=== PATIENT | male | born 1970 | race Caucasian/White ===

== ENCOUNTER 2025-09-13 17:43 | Emergency (ER) | payer OTHER, SELFPAY ==
[2025-09-13 17:49] VITALS: BP 150/91
[2025-09-13 17:58] VITALS: BMI 29.3
[2025-09-13 18:00] VITALS: BP 142/94
[2025-09-13 18:08] LABS: Hematocrit 53.8 % (39.0-52.0); Hemoglobin 17.4 g/dL (13.0-18.0); Mean Corp Hgb Conc. 32.3 g/dL (33.0-37.0); Mean Corpuscular Volume 93.1 fL (80.0-94.0); Nucleated Red Blood Cells % 0 % (-); Platelet Count 268 10^3/uL (130-400); Red Cell Dist. Width 13.6 % (11.5-14.5)
[2025-09-13 18:24] LABS: ALT (SGPT) 30 U/L (0-50); AST (SGOT) 36 U/L (17-59); Albumin 4.7 g/dl (3.5-5.0); Alkaline Phosphatase 64 U/L (38-126); Blood Urea Nitrogen 20 mg/dl (9-20); Calcium 9.5 mg/dl (8.4-10.2); Carbon Dioxide 23 mmol/L (22-30); Chloride 103 mmol/L (98-107); Estimated Creatinine Clearance 70 ml/min; Glucose 128 mg/dl (70-99); Potassium 4.2 mmol/L (3.5-5.1); Sodium 137 mmol/L (135-145); Total Protein 7.7 g/dl (6.3-8.2); eGFR > 60.00
[2025-09-13 19:00] VITALS: BP 186/97
[2025-09-13] MEDS: ATIVAN 1 MG IV ×2 (19:05→20:10)
[2025-09-13] MEDS: NSS 1000 IV (19:06)
--- NOTE | 2025-09-13 19:06 | ED.GENMED ---
History of Present Illness
General
Chief Complaint: Heart Rate Problem
Source: patient
Exam Limitations: none
Time Seen by Provider: 09/13/25 18:28
Nursing documentation reviewed up to this point in time: agreed with
History of Present Illness
History of Present Illness:
see MDM
Past History
Past History
ED Past Medical History: None
ED Past Surgical History: None
Social History
Tobacco: Smoker
Alcohol: Daily
Drug: Cocaine
Personal:
Living: with roommate
Employment: Employed
Review of Systems
Review of Systems
Allergies reviewed?: Yes
All Other Systems: Not applicable
Phy Exam
Physical Exam
Physical Exam:
see MDM
Course
Orders/Labs/Results
Orders:
Orders
09/13/25 17:46
EKG [Electrocardiogram (*1)] Urgent
Reason for Study: Tachycardia
EKG- Treatment ONCE
09/13/25 17:57
Complete Blood Count/With Diff Urgent
Comprehensive Metabolic Panel Urgent
09/13/25 18:53
0.9% Sodium Chloride 1000 ml [Nss] 1,000 ml IV BOLUS
Lorazepam [Ativan] 1 mg IV NOW STA
09/13/25 20:02
Lorazepam [Ativan] 1 mg IV NOW STA
09/13/25 20:04
Lorazepam [Ativan] 2 mg .ROUTE .STK-MED ONE
Abnormal Lab Results
09/13/25
17:57
WBC 13.2 H 10^3/uL
(4.8-10.8)
Hct 53.8 H %
(39.0-52.0)
MCHC 32.3 L g/dL
(33.0-37.0)
Abs Immat Gran (auto) 0.1 H 10^3/uL
(0-0.05)
Absolute Neuts (auto) 9.4 H 10^3/uL
(1.4-6.5)
Absolute Monos (auto) 1.0 H 10^3/uL
(0.1-0.6)
Immature Gran % 0.9 H %
(0-0.5)
Lymphocytes % 18.0 L %
(20.5-51.1)
Glucose 128 H mg/dl
(70-99)
09/13/25 17:57
09/13/25 17:57
Vital Signs
Initial and Last Documented VS:
Initial Vital Signs
BP
150/91
09/13/25 17:49
Last Documented Vital Signs
Temp Pulse Resp BP Pulse Ox
36.9 C 92 25 148/99 95
09/13/25 19:57 09/13/25 20:30 09/13/25 20:30 09/13/25 20:11 09/13/25 20:15
MDM/Problems Addressed
Differential Diagnosis Includes:
see MDM
MDM/Problems Addressed:
Note:
CHIEF COMPLAINT(S)
Suspected drug overdose.
HISTORY OF PRESENT ILLNESS
The patient is a 55 y/o male with a history of alcohol and substance use who presented to the emergency department after a binge. the patient has drank 3 pints of randi and did 8 balls of cocaine (snorted) in the past 2-3 days, and hasn't slept.
. He denied any suicidal intentions and mentioned no recent heart attack history. The patient does not experience withdrawal symptoms such as shakiness if he abstains from alcohol. There were no reports of chest pain, breathing difficulties, or
talking difficulties. The patients girlfriend called 911 because she observed concerning behavior, that he was paranoid. he says he doesn't feel paranoia here. He denied recent falls, head injuries, or nosebleeds.
SOCIAL DETERMINANTS AFFECTING HEALTH
The patient reported daily alcohol use but does not experience withdrawal symptoms. He denied having a substance abuse problem that necessitates rehab. The patient expressed anger toward his girlfriend for calling 911.
MEDICATIONS
The patient took one Xanax (alprazolam) tablet, unsure of its exact dosage.
REVIEW OF SYSTEMS
- Head: No reports of head injury or trauma.
- Cardiovascular: No recent heart attacks stated.
- Respiratory: No breathing difficulties reported.
- Neurological: No episodes of passing out or falls mentioned.
- Psychiatric: Denied suicidal ideation. Expressed being upset with the girlfriend for calling 911.
PHYSICAL EXAM
GENERAL: Alert , in no apparent distress
EYE: pupils equal and reactive
NECK: Supple
ENT: o/p clr, mildly hoarse voice, dry mouth, no nasal perforation or bleeding
CARDIAC: Regular rate and rhythm .
LUNGS: Clear breath sounds bilaterally, no acute respiratory distress, no wheezes/rales/rhonchi
ABDOMEN: Soft, without focal tenderness, no r/g, no cvat, normal bowel sounds
NEUROLOGICAL: Alert and oriented, no focal neuro deficits, does not seem paranoid
SKIN: Warm and dry, skin intact.
MUSCULOSKELETAL: No edema, well perfused. neg quique's sign
PSYCH: Normal and appropriate interaction.
Nursing notes and vital signs reviewed.
PLAN
The patient expressed no desire for rehab or detox assistance. Further evaluation and specific care plans were not explicitly discussed, indicating possible observation and supportive care as needed.
DIFFERENTIAL DIAGNOSIS
The Differential Diagnosis includes, in no particular order and is not limited to:
1. Cocaine intoxication
2. Alcohol intoxication
3. Xanax (alprazolam) overdose
4. Substance-induced mood disorder
5. Anxiety disorder
6. Acute stress reaction
7. Polysubstance abuse
8. Metabolic imbalance secondary to substance use
9. Respiratory depression from substance use
10. Cardiovascular complications from drug use
55-year-old male with a history of daily alcohol use and more recently binge use of cocaine, history of remote cocaine addiction presents for hallucinations and some paranoia witnessed by his girlfriend this evening. Patient says he in the last 2
days he really has not slept much, he used an 8 ball of cocaine and drank several pints of Randi and used 2 xanax 0.5 mg tabs to try to curb the anxiety but he was apparently screaming and now has hoarse voice
he has no cp, never had any
says his BP at home was normal despite that he was sweating the past 2 dyas
he feels now the best he has felt
no palpitaitons or syncope, no vomiting, no confusion here
neuro intact
no signs of stroke
ekg nonspecific t wave but no ischemia
mild leukocytosis related to drug use likely
pt was given some ativan beucase he seemed anxious and maybe coming down off the cocaine and alcohol
still hyperrtensive and mild tachy but oriented
says he is under tremendous stress due to a bad divorce
girlfeidn told me what happened
pt feels comfortable going home
he doesn't want B cares or help with detox
he has some xanax at home to take as needed for sleep
given 1 more dose of ativan here
d/w ed attending
*Pulse Oximetry
SaO2: 92
Patient hypoxic: no (95)
*Critical Care Note
Total Time (30-74mins, 75-104mins- exclusive of procedures): Not Applicable
ED Attending Note
-
Portions of this chart may have been created with voice recognition software.� Occasional wrong word or��sound alike� substitutions may have occurred due to the inherent limitations of voice recognition software.
Discharge Plan
Departure
Patient Disposition: Home (Routine Discharge)
Date of Disposition: 09/13/25
Time of Disposition: 20:47
Patient with high blood pressure during this ER visit?: Yes
Condition: Fair
Covid-19: Not Applicable
Discharge Problem:
Polysubstance abuse
Instructions: Alcohol intoxication - ED (DC), Substance use disorder - ED (DC), BLOOD PRESSURE
Referrals:
Suleman Srinivasan MD [Family Provider, Internal Medicine] - Follow up in 2-3 days
Activity Restrictions/Additional Instructions:
Your symptoms seem to be related to polysubstance abuse. You should seek help with your addiction as an outpatient, you can always return as needed. We gave you Ativan to help with the anxiety. He had no signs of a heart attack on your EKG. You
should return to the ER immediately for severe chest pain, change in mental status, fever or chills, alcohol withdrawal symptoms etc.
Have your blood pressure checked next week
Interventions
Interventions:
*Risk Screen - Suicide Last Done: 09/13/25 17:59
*General Assessment Last Done: 09/13/25 17:59
*Neglect/Abuse Screening Last Done: 09/13/25 17:59
*ED- Fall Risk Assessment Last Done: 09/13/25 17:59
*ED COVID-19 Vaccine History Last Done: 09/13/25 17:59
*ED Influenza Vaccine History Last Done: 09/13/25 17:59
*Nursing Disposition Last Done: 09/13/25 21:12
ED- Cardiac Assessment Last Done: 09/13/25 19:20
ED- Pulmonary Assessment Last Done: 09/13/25 19:20
Discharge Date and Time
Discharge Date/Time: 09/13/25 21:13
Print Language: [id number]
[2025-09-13 19:58] VITALS: BP 191/108
[2025-09-13 20:11] VITALS: BP 148/99
== END 2025-09-13 21:13 | disposition home or self-care (01) ==
LOC: EMR 17:43
PROVIDERS: EMERGENCY PHYSICIAN Emergency Medicine; FAMILY PHYSICIAN Internal Medicine
DX: F19.10 Other psychoactive substance abuse, uncomplicated (principal); F10.10 Alcohol abuse, uncomplicated; F17.200 Nicotine dependence, unspecified, uncomplicated
CPT/HCPCS: 99284; 96374; 96376; 96361; 80053; 85025; 93005